=== PATIENT | male | born 1980 | race Hispanic/Latino ===

== ENCOUNTER 2016-10-02 17:17 | Emergency (ER) | payer MEDICAID ==
[2016-10-02 17:36] VITALS: TEMP 99.3
[2016-10-02] MEDS ORDERED: Multivitamin (MVI) 10 ML, Thiamine 100 MG, Folic Acid 1 MG in Sodium Chloride 0.9% 1,00... IV ONE (18:59)
--- NOTE | 2016-10-02 19:13 | ED PDOC ---
HPI: Chest Pain Time Seen by Provider: 10/02/16 19:00 Chief Complaint (Nursing): Palpitations Chief Complaint (Provider): Palpitations History Per: Patient History/Exam Limitations: no limitations Onset/Duration Of Symptoms: Hrs Current Symptoms Are (Timing): Better Additional Complaint(s): Wellington Billingsley is a 36 year old male that presents to the ED with a chief complaint of heart palpitations and anxiety. Patient states that he was in [facility] while attempting to detox from alcohol when they gave him prescriptions for medication and discharged him, at which point they sent him to [place] so that he could stay in the homeless fdc. However, there were no beds available in the [place] homeless [facility], which caused his anxiety to increase. Patient states that he has been unable to fill his prescriptions in the [facility], as he was told there is a "block" on refilling them outside of [place], [place]. Pf Note: Patient states that he has not had any alcohol in 9 days. Patient additionally states that he requested to be sent to the homeless fdc in [place], which he is familiar with. Past Medical History Reviewed: Historical Data, Nursing Documentation, Vital Signs Vital Signs: Last Vital Signs Temp 99.3 F 10/02/16 17:32 Pulse 100 H 10/02/16 18:40 Resp 18 10/02/16 18:40 BP 120/74 10/02/16 18:40 Pulse Ox 99 10/02/16 19:19 - Medical History PMH: Anxiety - Family History Family History: States: Unknown Family Hx - Living Arrangements Living Arrangements: Other (nondomiciled) - Allergies Allergies/Adverse Reactions: Allergies Allergy/AdvReac Type Severity Reaction Status Date / Time No Known Allergies Allergy Verified 10/02/16 17:32 Review of Systems Cardiovascular: Positive for: Palpitations Psych: Positive for: Anxiety Physical Exam - Reviewed Nursing Documentation Reviewed: Yes Vital Signs Reviewed: Yes - Physical Exam Appears: Positive for: Non-toxic. Negative for: No Acute Distress (Patient is in mild anxious distress.) Head Exam: Positive for: ATRAUMATIC, NORMOCEPHALIC Skin: Positive for: Normal Color, Warm Eye Exam: Positive for: Normal appearance, EOMI, PERRL Cardiovascular/Chest: Positive for: Regular Rate, Rhythm, Tachycardia Respiratory: Positive for: Normal Breath Sounds. Negative for: Wheezing Neurologic/Psych: Positive for: Alert, Oriented. Negative for: Motor/Sensory Deficits - Laboratory Results Result Diagrams: 10/02/16 19:34 10/02/16 19:34 - ECG O2 Sat by Pulse Oximetry: 99 (RA) Pulse Ox Interpretation: Normal - Progress ED Course And Treament: ATIVAN 1 MG IV X 1 DOSE BANANA BAG X 1 LITER PATIENT CALM IN ED. REPEAT HR 94 PENDING CRISIS EVAL Medical Decision Making Medical Decision Making: Impression: Palpitations as a result of Anxiety Plan: * EKG * CMP * CBC * Alcohol Serum * Magnesium * Urine Drug Screen * Urinalysis * Ativan 1 mg IV * Sodium Chloride 1000 mL at 500 mLs/hr * Reevaluation 19:10 EKG shows sinus tachycardia at 125. Scribe Attestation: Documented by Raina White, acting as a scribe for Escobar Patel PA-C. Provider Scribe Attestation: All medical record entries made by the Scribe were at my direction and personally dictated by me. I have reviewed the chart and agree that the record accurately reflects my personal performance of the history, physical exam, medical decision making, and the department course for this patient. I have also personally directed, reviewed, and agree with the discharge instructions and disposition. Disposition - Clinical Impression Clinical Impression: Anxiety - Patient ED Disposition Is Patient to be Admitted: Transfer of Care - Disposition Disposition: Transfer of Care Disposition Time: 00:15 Condition: FAIR Forms: [employer] (Persian) Patient Signed Over To: Megan Thakur Handoff Comments: CRISIS EVAL.
[2016-10-02 19:40] LABS: BASO # 0.1 K/uL (0.0-0.2); BASO % 1.2 % (0.0-2.0); EOS # 0.2 K/uL (0.0-0.7); EOS % 2.2 % (0.0-4.0); HEMATOCRIT 41.8 % (35.0-51.0); LYMPH # 2.2 K/uL (1.0-4.3); LYMPH % 26.7 % (20.0-40.0); MEAN CELL VOLUME 92.2 fl (80.0-94.0); MEAN CORPUSCULAR HEMOGLOBIN 30.7 pg (27.0-31.0); MEAN CORPUSCULAR HGB CONC 33.3 g/dL (33.0-37.0); MEAN PLATELET VOLUME 10.1 fl (7.2-11.7); MONO # 0.7 K/uL (0.0-0.8); MONO % 8.7 % (0.0-10.0); NEUT % 61.2 % (50.0-75.0); NRBC % 0.1 % (0.0-0.0); RED CELL DISTRIBUTION WIDTH 13.6 % (11.5-14.5); WHITE BLOOD COUNT 8.2 K/uL (4.8-10.8)
[2016-10-02 19:50] LABS: ALB/GLOB RATIO 1.7 (1.0-2.1); ALCOHOL SERUM < 10 mg/dl (0-10); ALKALINE PHOSPHATASE 55 U/L (38-126); ALT/SGPT 43 U/L (21-72); AST/SGOT 30 U/L (17-59); BILIRUBIN,TOTAL 0.4 mg/dl (0.2-1.3); BLOOD UREA NITROGEN 25 mg/dl (9-20); CALCIUM 8.8 mg/dL (8.4-10.2); CARBON DIOXIDE 26 mmol/L (22-30); CHLORIDE 104 mmol/L (98-107); GFR AFRICAN-AMERICAN > 60; GLUCOSE,RANDOM 87 mg/dL (75-110); MAGNESIUM 2.1 MG/DL (1.6-2.3); POTASSIUM 4.3 MMOL/L (3.6-5.0); SODIUM 139 mmol/l (132-148); TOTAL PROTEIN 6.2 G/DL (6.3-8.2)
[2016-10-02 19:50] LABS: RBC URINE 1 /hpf (0-3); URINE BACTERIA RARE (<OCC); URINE BILIRUBIN NEGATIVE (NEGATIVE); URINE BLOOD NEGATIVE (NEGATIVE); URINE COLOR YELLOW (YELLOW); URINE GLUCOSE (UA) NEG (Normal); URINE KETONE NEGATIVE (NEGATIVE); URINE LEUKOCYTE ESTERASE NEG Leu/uL (Negative); URINE PROTEIN NEGATIVE (NEGATIVE); URINE UROBILINOGEN 0.2-1.0 mg/dL (0.2-1.0); WBC URINE 1 /hpf (0-5)
[2016-10-02] MEDS ORDERED: Sodium Chloride 0.9% 1,000 ML IV STA (20:31)
[2016-10-03 07:07] VITALS: BP 119/62; PULSE 76; RESP 17; O2SAT 98
== END 2016-10-03 07:07 | disposition home or self-care (01) ==
LOC: H.ER 17:17
DX: F41.9 Anxiety disorder, unspecified (principal); R00.2 Palpitations; Z59.0 Homelessness

== ENCOUNTER 2016-10-23 19:35 | Emergency (ER) | payer MEDICAID ==
[2016-10-23 20:06] VITALS: BP 118/67; PULSE 118; RESP 20; TEMP 97; O2SAT 99
--- NOTE | 2016-10-23 20:38 | ED PDOC ---
- ECG O2 Sat by Pulse Oximetry: 99 Disposition - Clinical Impression Clinical Impression: Anxiety - Disposition Condition: FAIR Instructions: Anxiety (ED) Forms: [employer] (Algerian)
--- NOTE | 2016-10-23 20:41 | ED PDOC ---
HPI: General Adult Time Seen by Provider: 10/23/16 19:55 Chief Complaint (Nursing): Anxiety Chief Complaint (Provider): Anxiety History Per: Patient History/Exam Limitations: no limitations Have you had recent travel within the past 21 days to any of the following countries: [place], [place], [place] or [place]?: No Additional Complaint(s): The patient is a 36yo male, presents to the ED with complaints of anxiety. Patient admits to drinking today and also taking his anxiety medication. He denies any chest pain and offers no medical complaints. Patient is requesting a sandwich. Past Medical History Reviewed: Historical Data, Nursing Documentation, Vital Signs Vital Signs: Last Vital Signs Temp 97.0 F L 10/23/16 20:03 Pulse 118 H 10/23/16 20:03 Resp 20 10/23/16 20:03 BP 118/67 10/23/16 20:03 Pulse Ox 99 10/23/16 21:00 - Medical History PMH: Anxiety Denies: Diabetes, Hepatitis, HIV, HTN, Seizures, Sexually Transmitted Disease - Surgical History Surgical History: No Surg Hx - Family History Family History: States: Unknown Family Hx - Allergies Allergies/Adverse Reactions: Allergies Allergy/AdvReac Type Severity Reaction Status Date / Time No Known Allergies Allergy Verified 10/02/16 17:32 Review of Systems ROS Statement: Except As Marked, All Systems Reviewed And Found Negative Psych: Positive for: Anxiety Physical Exam - Reviewed Nursing Documentation Reviewed: Yes Vital Signs Reviewed: Yes - Physical Exam Appears: Positive for: No Acute Distress Skin: Positive for: Normal Color Neck: Positive for: Normal Respiratory: Negative for: Respiratory Distress Neurologic/Psych: Positive for: Alert, Oriented. Negative for: Motor/Sensory Deficits - ECG O2 Sat by Pulse Oximetry: 99 (RA) Pulse Ox Interpretation: Normal Medical Decision Making Medical Decision Making: Time: 1999 Impression: Anxiety Plan: -- Patient given a sandwich and is requesting to leave. Patient AAOx3 with steady gait. Stable for d/c home. Scribe Attestation: Documented by Claritza Bonilla acting as a scribe for ALEJANDRINA Carter Provider Attestation: All medical record entries made by the Scribe were at my direction and personally dictated by me. I have reviewed the chart and agree that the record accurately reflects my personal performance of the history, physical exam, medical decision making, and the department course for this patient. I have also personally directed, reviewed, and agree with the discharge instructions and disposition. Disposition - Clinical Impression Clinical Impression: Anxiety - Patient ED Disposition Is Patient to be Admitted: No - Disposition Disposition: Routine/Home Disposition Time: 20:20 Condition: FAIR Instructions: Anxiety (ED) Forms: [employer] (Israeli)
== END 2016-10-23 21:29 | disposition home or self-care (01) ==
LOC: H.ER 19:35
DX: F41.9 Anxiety disorder, unspecified (principal)

== ENCOUNTER 2016-10-23 22:38 | Emergency (ER) | payer MEDICAID ==
[2016-10-23 22:42] VITALS: BP 118/67; TEMP 98.6; O2SAT 99
--- NOTE | 2016-10-23 23:28 | ED PDOC ---
HPI: General Adult Time Seen by Provider: 10/23/16 23:00 Chief Complaint (Nursing): Anxiety Chief Complaint (Provider): anxiety History Per: Patient (36 y/o male undomiciled here for evaluation of anxiety. Patient states he forgot to take anxiety medications today. Was seen at homeless [facility] in [place] but retirement was full, so he called ambulance to be seen at [facility] (formerly [facility]). Currently feels well.) Past Medical History Reviewed: Historical Data, Nursing Documentation, Vital Signs Vital Signs: Last Vital Signs Temp 98.6 F 10/23/16 22:39 Pulse 110 H 10/23/16 22:39 Resp 20 10/23/16 22:39 BP 118/67 10/23/16 22:39 Pulse Ox 99 10/23/16 22:39 - Medical History PMH: Anxiety Denies: Diabetes, Hepatitis, HIV, HTN, Seizures, Sexually Transmitted Disease - Family History Family History: States: Unknown Family Hx - Allergies Allergies/Adverse Reactions: Allergies Allergy/AdvReac Type Severity Reaction Status Date / Time No Known Allergies Allergy Verified 10/02/16 17:32 Review of Systems ROS Statement: Except As Marked, All Systems Reviewed And Found Negative Physical Exam - Reviewed Nursing Documentation Reviewed: Yes Vital Signs Reviewed: Yes - Physical Exam Appears: Positive for: Well, Non-toxic, No Acute Distress Head Exam: Positive for: ATRAUMATIC, NORMAL INSPECTION, NORMOCEPHALIC Skin: Positive for: Normal Color, Warm, DRY Eye Exam: Positive for: EOMI, Normal appearance, PERRL ENT: Positive for: Normal ENT Inspection Neck: Positive for: Normal, Painless ROM Cardiovascular/Chest: Positive for: Regular Rate, Rhythm Respiratory: Positive for: CNT, Normal Breath Sounds Gastrointestinal/Abdominal: Positive for: Normal Exam, Bowel Sounds, Soft Back: Positive for: Normal Inspection Extremity: Positive for: Normal ROM Neurologic/Psych: Positive for: Alert, Oriented - ECG O2 Sat by Pulse Oximetry: 99 - Progress ED Course And Treament: Patient sleeping comfortably in ED prior to provider interview. Of note, this is patient's 2nd visit to ED today for anxiety. Seen earlier and patient asked to be discharged after being given a sandwich. At that visit patient had stated he took his anxiety medication (contradictory to what he stated in this visit). Disposition - Clinical Impression Clinical Impression: Anxiety - Patient ED Disposition Is Patient to be Admitted: No - Disposition Disposition: Routine/Home Disposition Time: 23:29 Condition: FAIR Instructions: Anxiety (ED) Forms: [employer] (Mongolian)
[2016-10-23 23:45] VITALS: PULSE 92; RESP 16
== END 2016-10-23 23:44 | disposition home or self-care (01) ==
LOC: H.ER 22:38
DX: F41.9 Anxiety disorder, unspecified (principal)